=== PATIENT | male | born 1980 | race African-American/Black ===

== ENCOUNTER 2022-06-02 10:31 | Observation (INO) ==
[2022-06-02] MEDS ORDERED: KETAMINE HCL ONE (10:36)
[2022-06-02] MEDS ORDERED: XYLOCAINE 2 % (PLAIN) ONE (10:36)
[2022-06-02 11:44] VITALS: BMI 29.2
[2022-06-02 11:57] LABS: BASOPHILS % (AUTO) 0.4 % (0.2-1.0); EOSINOPHILS # (AUTO) 0.2 x10^3/uL (0.0-0.2); EOSINOPHILS % (AUTO) 2.2 % (0.9-2.9); HEMATOCRIT 37.5 % (42.0-54.0); HEMOGLOBIN 12.7 g/dL (13.5-18.0); LYMPHOCYTES % (AUTO) 17.3 % (21.0-51.0); MEAN CORPUSCULAR HEMOGLOBIN 28.2 pg (27.0-34.0); MEAN CORPUSCULAR HGB CONC 33.8 g/dL (33.0-35.0); MEAN CORPUSCULAR VOLUME 83.2 fL (80.0-100.0); MEAN PLATELET VOLUME 7.6 fL (7.4-11.0); MONOCYTES # (AUTO) 1.1 x10^3/uL (0.3-0.8); MONOCYTES % (AUTO) 9.5 % (0.0-13.0); NEUTROPHILS % (AUTO) 70.6 % (42.0-75.0); RED CELL DISTRIBUTION WIDTH 14.3 % (11.6-16.5); WHITE BLOOD COUNT 11.4 X10^3/uL (3.6-10.0)
[2022-06-02 12:06] LABS: INR 1.24 (0.8-1.3)
[2022-06-02] MEDS: PEPCID 20 MG VIAL 20 MG in NS 50 ML IV 50 ML IV SCH ×2 (12:35→20:22)
[2022-06-02] MEDS: PROTONIX INJ 40 MG VIAL IVP SCH ×2 (12:35→20:17)
[2022-06-02] MEDS: NS 1,000 ML IV 1,000 ML IV SCH (12:36)
[2022-06-02 12:59] LABS: ALANINE AMINOTRANSFERASE 42 Units/L (12-78); ALBUMIN 4.2 g/dL (3.4-5.0); ALKALINE PHOSPHATASE 210 Units/L (46-116); AMYLASE 15 Units/L (25-115); ASPARTATE AMINO TRANSFERASE 36 Units/L (15-37); BLOOD UREA NITROGEN 49 mg/dL (7-18); CALCIUM 8.9 mg/dL (8.5-10.1); CARBON DIOXIDE 26.1 mmol/L (21-32); CHLORIDE 87 mmol/L (98-107); COR NA(FOR HYPERGLY) 131 mmol/L (136-145); CREATINE KINASE 191 Units/L (39-308); LIPASE 296 Units/L (73-393); SODIUM 129 mmol/L (136-145); TOTAL PROTEIN 9.4 g/dL (6.4-8.2); eGFR NON BLACK RACES 4 (>60)
[2022-06-02] MEDS ORDERED: ZOFRAN TAB 4 MG PO PRN (16:22)
--- NOTE | 2022-06-02 16:51 | RAD ---
HISTORYNAUSEA AND VOMITNGSTUDYACUTE ABDOMEN SERIESCOMPARISONNone availableTECHNIQUEAP supine and upright abdominal radiographs with chest radiography, 7 images.FINDINGSGas and stool in non distended colon.Gas in scattered loops of non-distended small bowel; particularly in the left abdomen.No gross free air.No abnormal calcifications.No acute osseous abnormality.Lungs are clear of focal airspace disease.No cardiomegaly.No pneumothorax.No pleural effusion.Percutaneous peritoneal dialysis catheter in place.IMPRESSIONGas in scattered loops of non-distended small bowel; particularly in the left abdomen. No air-fluid levels visualized in bowel on the upright projections. Findings could represent a nonspecific enteritis, ileus or early mechanical obstruction.Electronically signed by: Nik Nickerson (Jun 02, 2022 16:49:19)
[2022-06-02] MEDS ORDERED: NS 50 ML IV 50 ML IV ONE (20:18)
[2022-06-02] MEDS: REQUIP PO SCH (20:19)
[2022-06-02] MEDS ORDERED: PEPCID 20 MG VIAL ONE (20:20)
[2022-06-02 20:43] LABS: BILIRUBIN,URINE 2+ (NEGATIVE); BLOOD/HEMOGLOBIN,URINE 2+ (NEGATIVE); GLUCOSE, URINE 2+ (NEGATIVE); KETONES,URINE 1+ (NEGATIVE); LEUKOCYTE ESTERASE ,URINE 1+ (NEGATIVE); NITRITES,URINE NEGATIVE (NEGATIVE); PROTEIN,URINE 2+ (NEGATIVE); UROBILINOGEN,URINE NORMAL (NORMAL)
[2022-06-02 20:46] LABS: APPEARANCE,URINE CLEAR (CLEAR); COLOR,URINE YELLOW (YELLOW)
[2022-06-02 20:47] LABS: BACTERIA,URINE TRACE /HPF (NEGATIVE); SQUAMOUS EPITHELIAL CELL,UR RARE /HPF (NEGATIVE)
[2022-06-02] MEDS: MAGNESIUM SULFATE 1 GRAM/100 mL PREMIX 1 G/100 ML BAG IV PRN (23:18)
[2022-06-03] MEDS: NS 1,000 ML IV 1,000 ML IV SCH ×3 (00:24→13:12)
[2022-06-03] MEDS: MAGNESIUM SULFATE 1 GRAM/100 mL PREMIX 1 G/100 ML BAG IV PRN (00:55)
[2022-06-03 05:27] LABS: BASOPHILS % (AUTO) 0.3 % (0.2-1.0); EOSINOPHILS # (AUTO) 0.3 x10^3/uL (0.0-0.2); EOSINOPHILS % (AUTO) 3.7 % (0.9-2.9); HEMATOCRIT 34.2 % (42.0-54.0); HEMOGLOBIN 11.7 g/dL (13.5-18.0); LYMPHOCYTES # (AUTO) 2.3 X10^3/uL (1.3-2.9); LYMPHOCYTES % (AUTO) 24.9 % (21.0-51.0); MEAN CORPUSCULAR HEMOGLOBIN 28.3 pg (27.0-34.0); MEAN CORPUSCULAR HGB CONC 34.2 g/dL (33.0-35.0); MEAN CORPUSCULAR VOLUME 82.8 fL (80.0-100.0); MEAN PLATELET VOLUME 7.6 fL (7.4-11.0); MONOCYTES % (AUTO) 11.1 % (0.0-13.0); NEUTROPHILS # (AUTO) 5.5 x10^3/uL (2.2-4.8); RED BLOOD COUNT 4.12 X10^6/uL (4.7-6.0); RED CELL DISTRIBUTION WIDTH 14.3 % (11.6-16.5); WHITE BLOOD COUNT 9.2 X10^3/uL (3.6-10.0)
[2022-06-03 05:42] LABS: ALANINE AMINOTRANSFERASE 42 Units/L (12-78); ALBUMIN 3.8 g/dL (3.4-5.0); ALKALINE PHOSPHATASE 187 Units/L (46-116); ASPARTATE AMINO TRANSFERASE 29 Units/L (15-37); BLOOD UREA NITROGEN 47 mg/dL (7-18); CALCIUM 8.4 mg/dL (8.5-10.1); CARBON DIOXIDE 27.2 mmol/L (21-32); CHLORIDE 90 mmol/L (98-107); COR NA(FOR HYPERGLY) 133 mmol/L (136-145); CREATININE 14.89 mg/dL (0.70-1.30); MAGNESIUM 2.4 mg/dL (1.7-2.9); SODIUM 131 mmol/L (136-145); TOTAL PROTEIN 8.5 g/dL (6.4-8.2); eGFR NON BLACK RACES 4 (>60)
[2022-06-03] MEDS: PEPCID 20 MG VIAL 20 MG in NS 50 ML IV 50 ML IV SCH (09:05)
[2022-06-03] MEDS: REQUIP PO SCH ×2 (09:05→20:52)
[2022-06-03] MEDS: PROTONIX INJ 40 MG VIAL IVP SCH ×2 (09:07→20:49)
[2022-06-03] MEDS ORDERED: MICRO K EXTEN CAP 10 MEQ PO ONE (10:00)
--- NOTE | 2022-06-03 11:01 | DR.H&P ---
H&P - History & Physical for Day of: H&P Date: 06/02/22 - Chief Complaint Chief Complaint: CHEST PAIN AND RECTAL BLEEDING - History of Present Illness History of Present Illness: PRESENTED TO THE OFFICE TODAY WITH COMPLAINTS OF CHEST PAIN. HE DESCRIBES PAIN PRESSURE, HEAVINESS, AND TIGHTNESS. PAIN RADIATES TO THE LEFT ARM AND SOMETIMES TO THE LEFT SIDE NECK. HE ADMITS TO LEFT ARM NUMBNESS AT TIMES. ADDITIONALLY, HE COMPLAINS OF DIFFUSE ABDOMINAL PAIN, NAUSEA, VOMITING, AND RECAL BLEEDING. SYMPTOMS STARTED APPROXIMATELY TWO WEEKS AGO. HE WAS SEEN AT [facility] EMERGENCY ROOM. APPARENTLY, AN EKG WAS DONE, BUT WAS REPORTEDLY NORMAL. HE HAS A PMH OF END STAGE RENAL DISEASE ON PERITONEAL DIALYSIS, HTN, GERD, HYPERLIPIDEMIA, INSOMNIA, LOW BACK PAIN, RIGHT KNEE OSTEOARTHRITIS, AND CHOLECYSTECTOMY. DECISION WAS MADE TO ADMIT PATIENT TO THE HOSPITAL FOR FURTHER EVALUATION AND TREATMENT OF CHEST PAIN AND RECTAL BLEEDING. ON ARRIVAL TO THE HOSPITAL, VITALS WERE: 98.5-238-11-100%-115/79. LABS WERE OBTAINED. WBC 11.4, RBC 4.50, HGB 12.7, HCT 37.5, PT 15.2, INR 1.24, PTT 43.0, D-DIMER 0.97, SODIUM 129, POTASSIUM 3.3, CHLORIDE 87, BUN 49, CREATININE 15.70, GLUCOSE 178, CALCIUM 8.9, AST 36, ALT 42, ALK PHOS 210, CREATINE KINASE 191, TROPONIN 38.7, TOTAL PROTEIN 9.4, ALBUMIN 4.2, GLOBULIN 5.2, AMYLASE 15, LIPASE 296. URINALYSIS REVEALED: WBC 5-10, RBC 5- 10, LEUKOCYTES 1+, BACTERIA TRACE, NITRITE NEGATIVE. COVID-19 NEGATIVE. ABDOMINAL SERIES OBTAINED AND REVEALED: Gas in scattered loops of non-distended small bowel; particularly in the left abdomen. No air-fluid levels visualized in bowel on the upright projections. Findings could represent a nonspecific enteritis, ileus or early mechanical obstruction. EKG REVEALED: SINUS TACHYCARDIA WITH HR 115. HE WAS STARTED ON NORMAL SALINE AT 80 ML/HR, PEPCID 20MG IV DAILY, PROTONIX 40MG IV BID, ROCEPHIN 1G IV DAILY, ZOFRAN 4MG PO Q6H PRN, THE MAGNESIUM PROTOCOL, AND HIS HOME MEDICATIONS WERE RESUMED. WE WILL CONSULT , INSURANCE APPRAISER, DUE TO CHEST PAIN AND , GENERAL SURGEON, FOR POSSIBLE ENDOSCOPY DUE TO RECTAL BLEEDING. OTHERWISE, WE WILL FOLLOW-UP WITH SERIAL CARDIAC ENZYMES AND EKGS AND CONTINUE TO MONITOR. TIME SPENT ON CLINICAL ASSESSMENT, REVIWING LABS AND IMAGING, DECISION MAKING, AND DOCUMENTATION GREATER THAN 75 MINUTES. - Past Medical History Past Medical History: Hypertension, Diabetes, Renal Disease - Past Surgical History Surgical History: Cholecystectomy - Family History Family Medical History: Diabetes Mellitus, Hypertension - Social History Does patient currently use any type of tobacco product: No Have you used tobacco products in the last 12 months: No Does any household member use tobacco: No Alcohol Use: None Drug Use: None - Medications Home Medications: MS Penicillin G [Penicillin G] Allergy (Verified 04/04/15 20:58) CONTINUE taking the following medications amlodipine 10 mg tablet 1 tab PO QDAY 06/02/22 [History] calcitriol 0.25 mcg capsule 0.75 mcg PO QDAY 06/02/22 [History] cinacalcet 60 mg tablet 60 mg PO QHS 06/02/22 [History] furosemide 80 mg tablet 80 mg PO BID 06/02/22 [History] metoprolol succinate 25 mg tablet,extended release 24 hr 1 tab PO QDAY 06/02/22 [History] pantoprazole 40 mg tablet,delayed release (Protonix) 40 mg PO BID 06/02/22 [History] ropinirole 0.5 mg tablet 0.5 mg PO QHS 06/02/22 [History] - Review of Systems Constitutional: Weakness Eyes: No Symptoms Reported ENT: No Symptoms Reported Respiratory: No Symptoms Reported Cardiovascular: Chest Pain, Light Headedness Gastrointestinal: Nausea, Vomiting, Abdominal Pain, Melena Genitourinary: No Symptoms Reported Musculoskeletal: No Symptoms Reported Skin: No Symptoms Reported Neurological: Weakness - Physical Exam Vital Signs: Temperature 97.8 F Pulse Rate [Bilateral Apical] 100 Pulse Rate 108 Respiratory Rate 12 Blood Pressure [Right Arm] 132/82 Blood Pressure 130/85 O2 Sat by Pulse Oximetry 100 Oriented: Normal Eyes: Normal Ear: Normal Nose: Normal Throat: Normal Respiratory: Diminished Throughout Cardiovascular: Tachycardia : Normal Auscultation: Bowel Sounds: Normal Palpation: Normal Tenderness: Diffuse Skin: Normal Musculoskeletal: Normal Psychiatric: Normal Mood Description: Calm Affect: Normal Speech Pattern: Clear - Assessment/Plan (1) Chest pain, rule out acute myocardial infarction Status: Acute Plan: ADMIT, NORMAL SALINE AT 80 ML/HR, PEPCID 20MG IV DAILY, PROTONIX 40MG IV BID, ROCEPHIN 1G IV DAILY, ZOFRAN 4MG PO Q6H PRN, THE MAGNESIUM PROTOCOL, AND HIS HOME MEDICATIONS WERE RESUMED. SERIAL CARDIAC ENZYMES AND EKGS (2) Nausea and vomiting Qualifiers: Vomiting type: unspecified Qualified Code(s): R11.2 - Nausea with vomiting, unspecified Status: Acute (3) Melena Status: Acute (4) Urinary tract infection Qualifiers: Urinary tract infection type: site unspecified Hematuria presence: without hematuria Qualified Code(s): N39.0 - Urinary tract infection, site not specified Status: Acute (5) End-stage renal disease on peritoneal dialysis Status: Chronic (6) Hypertension Qualifiers: Hypertension type: primary hypertension Qualified Code(s): I10 - Essential (primary) hypertension Status: Chronic (7) GERD (gastroesophageal reflux disease) Qualifiers: Esophagitis presence: esophagitis presence not specified Qualified Code(s): K21.9 - Gastro-esophageal reflux disease without esophagitis Status: Chronic - Review H&P Reviewed: Yes Patient was examined?: Yes - Allergies Allergies/Adverse Reactions: Allergies Allergy/AdvReac Type Severity Reaction Status Date / Time MS Penicillin G Allergy Verified 04/04/15 20:58 [Penicillin G]
[2022-06-03] MEDS: ROCEPHIN VIAL 1 GRAM 1 G in NS 100 ML IV 100 ML IV SCH (11:39)
--- NOTE | 2022-06-03 12:31 | PCM.PROG ---
Progress Note - Progress Note for Day of Date of Exam: 06/03/22 - Subjective Subjective: IS CURRENTLY OBSERVATION STATUS FOR TREATMENT OF CHEST PAIN RULE OUT ACUTE CO, ABDOMINAL PAIN, NAUSEA AND VOMITING, AND MELENA. TODAY, HE IS ALERT AND ORIENTED, LYING IN BED ON MORNING ROUNDS. HE CONTINUES WITH COMPLAINTS OF CHEST PRESSURE AND ABDOMINAL PAIN. HE REPORTS SLIGHT IMPROVEEMENT IN CHEST PRESSURE TODAY. HE CONTINUES WITH COMPLAINTS OF NAUSEA AND DIFFUSE ABDOMINAL TENDERNESS THIS MORNING. ON EXAMINATION, HEART IS REGULAR IN RATE AND RHYTHM. BILATERAL LUNGS ARE NOTED WITH DIMINISHED LUNG SOUNDS THROUGHOUT. ABDOMEN IS ROUND, SOFT, AND NOTED WITH DIFFUSE TENDERNESS. TRACE LOWER EXTREMITY EDEMA NOTED. HIS VITALS THIS MORNING ARE: 97.6-720-78-100%-132/82. LABS WERE OBTAINED. WBC 9.2, RBC 4.12, HGB 11.7, HCT 34.2, SODIUM 131, POTASSIUM 2.9, CHLORIDE 90, BUN 47, CREATININE 14.89, GLUCOSE 176, CALCIUM 8.4, ALK PHOS 187, TOTAL PROTEIN 8.5, ALBUMIN 3.8. CARDIAC ENZYMES HAVE BEEN WITHIN NORMAL LIMITS. NO CHANGES NOTED TO EKGS. TODAY, WE WILL ADMINISTER POTASSIUM CHLORIDE 10MEQ PO X 1 DOSE. , GENERAL SURGEON, AND DR. RODRIGES, TIRE BAGGER, ARE SCHEDULED TO SEE PATIENT TODAY. WE WILL CONTINUE WITH CURRENT PLAN OF CARE. OTHERWISE, WE WILL FOLLOW-UP WITH AM LABS AND CONTINUE TO MONITOR. TIME SPENT ON CLINICAL ASSESSMENT, REVIWING LABS AND IMAGING, DECISION MAKING, AND DOCUMENTATION GREATER THAN 45 MINUTES. - Past Medical Family Social History Past Med/Fam/Surg Hx: No changes since H&P Allergies: Allergies MS Penicillin G [Penicillin G] Allergy (Verified 04/04/15 20:58) - Review of Systems ROS: No change since H&P - Vital Signs and I&O's Vital Signs: Temperature 98.2 F Pulse Rate [Bilateral Apical] 100 Pulse Rate 108 Respiratory Rate 18 Blood Pressure [Right Arm] 132/82 Blood Pressure 123/69 O2 Sat by Pulse Oximetry 100 Intake and Output: Intake & Output 06/01/22 06/02/22 06/03/22 06/04/22 11:59 11:59 11:59 11:59 Intake Total 1564 / 1564 Output Total Balance 1539 / 1539 - Physical Exam Oriented: Normal Eyes: Normal Ear: Normal Nose: Normal Throat: Normal Respiratory: Generalized, Diminished Cardiovascular: Tachycardia : Normal Auscultation: Bowel Sounds: Normal Palpation: Normal Tenderness: Diffuse Skin: Normal Musculoskeletal: Normal Psychiatric: Normal Mood Description: Calm Affect: Normal Speech Pattern: Clear - Laboratory and Diagnostics Result Diagrams: 06/03/22 04:55 06/03/22 04:55 Labs: Laboratory WBC 9.2 X10^3/uL (3.6-10.0) 06/03/22 04:55 RBC 4.12 X10^6/uL (4.7-6.0) L 06/03/22 04:55 Hgb 11.7 g/dL (13.5-18.0) L 06/03/22 04:55 Hct 34.2 % (42.0-54.0) L 06/03/22 04:55 MCV 82.8 fL (80.0-100.0) 06/03/22 04:55 MCH 28.3 pg (27.0-34.0) 06/03/22 04:55 MCHC 34.2 g/dL (33.0-35.0) 06/03/22 04:55 RDW 14.3 % (11.6-16.5) 06/03/22 04:55 Plt Count 296 X10^3/uL (150.0-450.0) 06/03/22 04:55 MPV 7.6 fL (7.4-11.0) 06/03/22 04:55 Neut % (Auto) 60.0 % (42.0-75.0) 06/03/22 04:55 Lymph % (Auto) 24.9 % (21.0-51.0) 06/03/22 04:55 [place] % (Auto) 11.1 % (0.0-13.0) 06/03/22 04:55 Eos % (Auto) 3.7 % (0.9-2.9) H 06/03/22 04:55 Baso % (Auto) 0.3 % (0.2-1.0) 06/03/22 04:55 Neut # (Auto) 5.5 x10^3/uL (2.2-4.8) H 06/03/22 04:55 Lymph # (Auto) 2.3 X10^3/uL (1.3-2.9) 06/03/22 04:55 [place] # (Auto) 1.0 x10^3/uL (0.3-0.8) H 06/03/22 04:55 Eos # (Auto) 0.3 x10^3/uL (0.0-0.2) H 06/03/22 04:55 Baso # (Auto) 0.0 X10^3/uL (0.0-0.1) 06/03/22 04:55 Absolute Nucleated RBC 0.1 /100WBC 06/03/22 04:55 PT 15.2 SECONDS (11.8-14.3) 06/02/22 11:40 INR Target Range - 06/02/22 11:40 INR 1.24 (0.8-1.3) 06/02/22 11:40 APTT 43.0 SECONDS (22.9-36.5) H 06/02/22 11:40 PTT Comment - 06/02/22 11:40 D-Dimer 0.97 ug/ml (0.0-0.57) H 06/02/22 11:40 Sodium 131 mmol/L (136-145) L 06/03/22 04:55 Corrected Sodium 133 mmol/L (136-145) L 06/03/22 04:55 Potassium 2.9 mmol/L (3.5-5.1) L* 06/03/22 04:55 Chloride 90 mmol/L (98-107) L 06/03/22 04:55 Carbon Dioxide 27.2 mmol/L (21-32) 06/03/22 04:55 BUN 47 mg/dL (7-18) H 06/03/22 04:55 Creatinine 14.89 mg/dL (0.70-1.30) H 06/03/22 04:55 Est GFR (MDRD) Af Amer 5 (>60) L 06/03/22 04:55 Est GFR (MDRD) Non-Af 4 (>60) L 06/03/22 04:55 Glucose 176 mg/dL (65-99) H 06/03/22 04:55 Calcium 8.4 mg/dL (8.5-10.1) L 06/03/22 04:55 Corrected Calcium TNP 06/03/22 04:55 Magnesium 2.4 mg/dL (1.7-2.9) 06/03/22 04:55 Total Bilirubin 0.50 mg/dL (0.2-1.0) 06/03/22 04:55 AST 29 Units/L (15-37) 06/03/22 04:55 ALT 42 Units/L (12-78) 06/03/22 04:55 Alkaline Phosphatase 187 Units/L (46-116) H 06/03/22 04:55 Creatine Kinase 172 Units/L (39-308) 06/02/22 22:35 Troponin I High Sens 46.7 ng/L (4.0-60.0) 06/02/22 22:35 B-Natriuretic Peptide 64.8 pg/mL (0-79) 06/02/22 11:40 Total Protein 8.5 g/dL (6.4-8.2) H 06/03/22 04:55 Albumin 3.8 g/dL (3.4-5.0) 06/03/22 04:55 Globulin 4.7 g/dL (2.5-4.5) H 06/03/22 04:55 Albumin/Globulin Ratio 0.8 Ratio (1.1-2.1) L 06/03/22 04:55 Amylase 15 Units/L (25-115) L 06/02/22 11:40 Lipase 296 Units/L (73-393) 06/02/22 11:40 Specimen Type Clean catch urine 06/02/22 20:20 Urine Color Yellow (YELLOW) 06/02/22 20:20 Urine Appearance Clear (CLEAR) 06/02/22 20:20 Urine pH 5.0 (5.0 - 8.0) 06/02/22 20:20 Ur Specific [place] 1.020 (1.000-1.030) 06/02/22 20:20 Urine Protein 2+ (NEGATIVE) 06/02/22 20:20 Urine Glucose (UA) 2+ (NEGATIVE) 06/02/22 20:20 Urine Ketones 1+ (NEGATIVE) 06/02/22 20:20 Urine Blood 2+ (NEGATIVE) 06/02/22 20:20 Urine Nitrite Negative (NEGATIVE) 06/02/22 20:20 Urine Bilirubin 2+ (NEGATIVE) 06/02/22 20:20 Urine Urobilinogen Normal (NORMAL) 06/02/22 20:20 Ur Leukocyte Esterase 1+ (NEGATIVE) 06/02/22 20:20 Urine RBC 5-10 /HPF (0-3) A 06/02/22 20:20 Urine WBC 5-10 /HPF (0-5) A 06/02/22 20:20 Ur Squamous Epith Cells Rare /HPF (NEGATIVE) 06/02/22 20:20 Urine Bacteria Trace /HPF (NEGATIVE) 06/02/22 20:20 Ur Culture Indicated? No/not indicated 06/02/22 20:20 SARS-CoV-2 (PCR) Negative (NEGATIVE) 06/02/22 20:00 - Plan (1) Chest pain, rule out acute myocardial infarction Status: Acute Plan: NORMAL SALINE AT 80 ML/HR, PEPCID 20MG IV DAILY, PROTONIX 40MG IV BID, ROCEPHIN 1G IV DAILY, ZOFRAN 4MG PO Q6H PRN, THE MAGNESIUM PROTOCOL, AND HIS HOME MEDICATIONS WERE RESUMED. SERIAL CARDIAC ENZYMES AND EKGS (2) Nausea and vomiting Status: Acute Qualifiers: Vomiting type: unspecified Qualified Code(s): R11.2 - Nausea with vomiting, unspecified (3) Melena Status: Acute (4) Urinary tract infection Status: Acute Qualifiers: Urinary tract infection type: site unspecified Hematuria presence: without hematuria Qualified Code(s): N39.0 - Urinary tract infection, site not specified (5) End-stage renal disease on peritoneal dialysis Status: Chronic (6) Hypertension Status: Chronic Qualifiers: Hypertension type: primary hypertension Qualified Code(s): I10 - Essential (primary) hypertension (7) GERD (gastroesophageal reflux disease) Status: Chronic Qualifiers: Esophagitis presence: esophagitis presence not specified Qualified Code(s): K21.9 - Gastro-esophageal reflux disease without esophagitis
[2022-06-03] MEDS ORDERED: TOPROL XL PO SCH (13:00)
[2022-06-03] MEDS ORDERED: DIPRIVAN VIAL 20 ML ONE (14:42)
[2022-06-03] MEDS ORDERED: ZOFRAN INJ 4 MG VIAL ONE (14:44)
[2022-06-03] MEDS: LASIX PO SCH ×2 (15:22→20:52)
[2022-06-03] MEDS: NORVASC TAB 10 MG PO SCH (15:22)
[2022-06-03] MEDS: ROCALTROL PO SCH (15:22)
[2022-06-03] MEDS ORDERED: ULTRAM PO PRN (19:45)
[2022-06-03] MEDS: SENSIPAR PO SCH (20:51)
[2022-06-03] MEDS: CATAPRES TAB 0.2 MG PO SCH (20:52)
[2022-06-04] MEDS: NS 1,000 ML IV 1,000 ML IV SCH ×2 (01:42→15:27)
[2022-06-04] MEDS ORDERED: K-RIDER 10 MEQ/NS 100 ML 10 MEQ/100 ML BAG IV PRN (01:42)
[2022-06-04] MEDS ORDERED: MAGNESIUM SULFATE 1 GRAM/100 mL PREMIX 1 G/100 ML BAG IV PRN (01:42)
[2022-06-04] MEDS ORDERED: K-DUR TAB 20 MEQ PO PRN (01:42)
[2022-06-04] MEDS ORDERED: MICRO K EXTEN CAP 10 MEQ PO PRN (01:42)
[2022-06-04] MEDS ORDERED: KLOR-CON PO PRN (01:42)
[2022-06-04] MEDS ORDERED: POTASSIUM CHL 60 MEQ/NS 0.45% 500 ML IV PRN (01:42)
[2022-06-04] MEDS ORDERED: POTASSIUM CHL 40 MEQ/NS 0.45% 500 ML IV PRN (01:42)
[2022-06-04] MEDS ORDERED: POTASSIUM CHLORIDE LIQ 20 MEQ UDC PO PRN (01:42)
[2022-06-04 05:45] LABS: ALANINE AMINOTRANSFERASE 40 Units/L (12-78); ALBUMIN 3.4 g/dL (3.4-5.0); ALKALINE PHOSPHATASE 163 Units/L (46-116); ASPARTATE AMINO TRANSFERASE 26 Units/L (15-37); BLOOD UREA NITROGEN 50 mg/dL (7-18); CALCIUM 7.8 mg/dL (8.5-10.1); CARBON DIOXIDE 25.7 mmol/L (21-32); CHLORIDE 92 mmol/L (98-107); COR NA(FOR HYPERGLY) 132 mmol/L (136-145); CREATININE 15.65 mg/dL (0.70-1.30); MAGNESIUM 2.1 mg/dL (1.7-2.9); SODIUM 131 mmol/L (136-145); TOTAL PROTEIN 7.5 g/dL (6.4-8.2); eGFR NON BLACK RACES 4 (>60)
[2022-06-04 05:47] LABS: BASOPHILS % (AUTO) 0.3 % (0.2-1.0); EOSINOPHILS # (AUTO) 0.3 x10^3/uL (0.0-0.2); EOSINOPHILS % (AUTO) 3.3 % (0.9-2.9); HEMATOCRIT 30.8 % (42.0-54.0); HEMOGLOBIN 10.4 g/dL (13.5-18.0); LYMPHOCYTES # (AUTO) 2.1 X10^3/uL (1.3-2.9); LYMPHOCYTES % (AUTO) 21.6 % (21.0-51.0); MEAN CORPUSCULAR HEMOGLOBIN 28.2 pg (27.0-34.0); MEAN CORPUSCULAR HGB CONC 33.8 g/dL (33.0-35.0); MEAN CORPUSCULAR VOLUME 83.4 fL (80.0-100.0); MEAN PLATELET VOLUME 8.2 fL (7.4-11.0); MONOCYTES # (AUTO) 0.9 x10^3/uL (0.3-0.8); MONOCYTES % (AUTO) 9.6 % (0.0-13.0); NEUTROPHILS # (AUTO) 6.4 x10^3/uL (2.2-4.8); NEUTROPHILS % (AUTO) 65.2 % (42.0-75.0); RED CELL DISTRIBUTION WIDTH 14.4 % (11.6-16.5); WHITE BLOOD COUNT 9.7 X10^3/uL (3.6-10.0)
--- NOTE | 2022-06-04 08:02 | DR.PROGNOT ---
Hospital Progress Notes - Progress Note for Day of: Progress Note Date: 06/04/22 - Chief Complaint Chief Complaint: EGD showed mild gastritis , no obstruction , no bleeding , no ulcers . still having rectal bleeding . - Past Medical Family Social History Past Med/Fam/Surg Hx: No changes since H&P Allergies: Allergies penicillin G Allergy (Verified 06/04/22 07:59) - Review Of Systems ROS: No change since H&P - Vital Signs Vital Signs: Temperature 97.1 F Pulse Rate [Bilateral Apical] 100 Pulse Rate 82 Respiratory Rate 15 Blood Pressure [Right Arm] 132/82 Blood Pressure 96/53 O2 Sat by Pulse Oximetry 100 - Physical Exam Oriented: Normal Eyes: Normal Ear: Normal Nose: Normal Throat: Normal Respiratory: Generalized, Diminished Cardiovascular: Tachycardia : Normal GI:Auscultation: Normal GI:Palpation: Normal GI: Tenderness: Diffuse Skin: Normal Musculoskeletal: Normal Psychiatric: Normal Mood Description: Calm Affect: Normal Speech Pattern: Clear, Appropriate - Laboratory and Diagnostics Result Diagrams: 06/04/22 04:38 06/04/22 04:38 Labs: 06/03/22 16:20 Urine,Clean Catch Urine Culture - Preliminary Laboratory WBC 9.7 X10^3/uL (3.6-10.0) 06/04/22 04:38 RBC 3.70 X10^6/uL (4.7-6.0) L 06/04/22 04:38 Hgb 10.4 g/dL (13.5-18.0) L 06/04/22 04:38 Hct 30.8 % (42.0-54.0) L 06/04/22 04:38 MCV 83.4 fL (80.0-100.0) 06/04/22 04:38 MCH 28.2 pg (27.0-34.0) 06/04/22 04:38 MCHC 33.8 g/dL (33.0-35.0) 06/04/22 04:38 RDW 14.4 % (11.6-16.5) 06/04/22 04:38 Plt Count 265 X10^3/uL (150.0-450.0) 06/04/22 04:38 MPV 8.2 fL (7.4-11.0) 06/04/22 04:38 Neut % (Auto) 65.2 % (42.0-75.0) 06/04/22 04:38 Lymph % (Auto) 21.6 % (21.0-51.0) 06/04/22 04:38 [place] % (Auto) 9.6 % (0.0-13.0) 06/04/22 04:38 Eos % (Auto) 3.3 % (0.9-2.9) H 06/04/22 04:38 Baso % (Auto) 0.3 % (0.2-1.0) 06/04/22 04:38 Neut # (Auto) 6.4 x10^3/uL (2.2-4.8) H 06/04/22 04:38 Lymph # (Auto) 2.1 X10^3/uL (1.3-2.9) 06/04/22 04:38 [place] # (Auto) 0.9 x10^3/uL (0.3-0.8) H 06/04/22 04:38 Eos # (Auto) 0.3 x10^3/uL (0.0-0.2) H 06/04/22 04:38 Baso # (Auto) 0.0 X10^3/uL (0.0-0.1) 06/04/22 04:38 Absolute Nucleated RBC 0.1 /100WBC 06/04/22 04:38 PT 15.2 SECONDS (11.8-14.3) 06/02/22 11:40 INR Target Range - 06/02/22 11:40 INR 1.24 (0.8-1.3) 06/02/22 11:40 APTT 43.0 SECONDS (22.9-36.5) H 06/02/22 11:40 PTT Comment - 06/02/22 11:40 D-Dimer 0.97 ug/ml (0.0-0.57) H 06/02/22 11:40 Sodium 131 mmol/L (136-145) L 06/04/22 04:38 Corrected Sodium 132 mmol/L (136-145) L 06/04/22 04:38 Potassium 3.8 mmol/L (3.5-5.1) 06/04/22 04:38 Chloride 92 mmol/L (98-107) L 06/04/22 04:38 Carbon Dioxide 25.7 mmol/L (21-32) 06/04/22 04:38 BUN 50 mg/dL (7-18) H 06/04/22 04:38 Creatinine 15.65 mg/dL (0.70-1.30) H 06/04/22 04:38 Est GFR (MDRD) Af Amer 4 (>60) L 06/04/22 04:38 Est GFR (MDRD) Non-Af 4 (>60) L 06/04/22 04:38 Glucose 129 mg/dL (65-99) H 06/04/22 04:38 Calcium 7.8 mg/dL (8.5-10.1) L 06/04/22 04:38 Corrected Calcium TNP 06/04/22 04:38 Magnesium 2.1 mg/dL (1.7-2.9) 06/04/22 04:38 Total Bilirubin 0.40 mg/dL (0.2-1.0) 06/04/22 04:38 AST 26 Units/L (15-37) 06/04/22 04:38 ALT 40 Units/L (12-78) 06/04/22 04:38 Alkaline Phosphatase 163 Units/L (46-116) H 06/04/22 04:38 Creatine Kinase 172 Units/L (39-308) 06/02/22 22:35 Troponin I High Sens 46.7 ng/L (4.0-60.0) 06/02/22 22:35 B-Natriuretic Peptide 64.8 pg/mL (0-79) 06/02/22 11:40 Total Protein 7.5 g/dL (6.4-8.2) 06/04/22 04:38 Albumin 3.4 g/dL (3.4-5.0) 06/04/22 04:38 Globulin 4.1 g/dL (2.5-4.5) 06/04/22 04:38 Albumin/Globulin Ratio 0.8 Ratio (1.1-2.1) L 06/04/22 04:38 Amylase 15 Units/L (25-115) L 06/02/22 11:40 Lipase 296 Units/L (73-393) 06/02/22 11:40 Specimen Type Clean catch urine 06/02/22 20:20 Urine Color Yellow (YELLOW) 06/02/22 20:20 Urine Appearance Clear (CLEAR) 06/02/22 20:20 Urine pH 5.0 (5.0 - 8.0) 06/02/22 20:20 Ur Specific [place] 1.020 (1.000-1.030) 06/02/22 20:20 Urine Protein 2+ (NEGATIVE) 06/02/22 20:20 Urine Glucose (UA) 2+ (NEGATIVE) 06/02/22 20:20 Urine Ketones 1+ (NEGATIVE) 06/02/22 20:20 Urine Blood 2+ (NEGATIVE) 06/02/22 20:20 Urine Nitrite Negative (NEGATIVE) 06/02/22 20:20 Urine Bilirubin 2+ (NEGATIVE) 06/02/22 20:20 Urine Urobilinogen Normal (NORMAL) 06/02/22 20:20 Ur Leukocyte Esterase 1+ (NEGATIVE) 06/02/22 20:20 Urine RBC 5-10 /HPF (0-3) A 06/02/22 20:20 Urine WBC 5-10 /HPF (0-5) A 06/02/22 20:20 Ur Squamous Epith Cells Rare /HPF (NEGATIVE) 06/02/22 20:20 Urine Bacteria Trace /HPF (NEGATIVE) 06/02/22 20:20 Ur Culture Indicated? No/not indicated 06/02/22 20:20 Stool Description Brown soft 06/03/22 16:20 Stl Occult Blood (IFOB) Negative (NEGATIVE) 06/03/22 16:20 SARS-CoV-2 (PCR) Negative (NEGATIVE) 06/02/22 20:00 Tissue Pathology To follow 06/03/22 14:47 - Assessment and Plan 1: rectal bleeding , nausea , vomiting , abdominal pain . for colonoscopy in am . - Problem Patient Problems: Patient Problems Hypertension (Chronic) I10 Chest pain, rule out acute myocardial infarction (Acute) R07.9 Nausea and vomiting (Acute) R11.2 Melena (Acute) K92.1 End-stage renal disease on peritoneal dialysis (Chronic) N18.6, Z99.2 GERD (gastroesophageal reflux disease) (Chronic) K21.9 Urinary tract infection (Acute) N39.0
[2022-06-04] MEDS ORDERED: LOPRESSOR TAB 50 MG PO SCH (09:00)
[2022-06-04] MEDS: ROCEPHIN VIAL 1 GRAM 1 G in NS 100 ML IV 100 ML IV SCH (09:45)
[2022-06-04] MEDS: PROTONIX INJ 40 MG VIAL IVP SCH ×2 (09:46→20:07)
[2022-06-04] MEDS: ROCALTROL PO SCH (09:46)
[2022-06-04] MEDS: PEPCID 20 MG VIAL 20 MG in NS 50 ML IV 50 ML IV SCH (09:46)
[2022-06-04] MEDS: REQUIP PO SCH ×2 (09:46→20:08)
[2022-06-04] MEDS: LASIX PO SCH ×2 (09:47→20:07)
[2022-06-04] MEDS: CATAPRES TAB 0.2 MG PO SCH ×2 (09:54→20:07)
[2022-06-04] MEDS: NORVASC TAB 10 MG PO SCH (09:54)
[2022-06-04] MEDS ORDERED: GOLYTELY or GAVILYTE or Equivalent PO NR (10:00)
--- NOTE | 2022-06-04 11:13 | PCM.PROG ---
Progress Note - Progress Note for Day of Date of Exam: 06/04/22 - Subjective Subjective: IS CURRENTLY OBSERVATION STATUS FOR TREATMENT OF CHEST PAIN RULE OUT ACUTE OR, ABDOMINAL PAIN, NAUSEA AND VOMITING, AND MELENA. TODAY, HE IS ALERT AND ORIENTED, LYING IN BED ON MORNING ROUNDS. HE CONTINUES WITH COMPLAINTS RECTAL BLEEDING AND MILD, DIFFUSE ABDOMINAL PAIN AT TIMES. HE DOES ADMIT TO SOME IMPROVEMENT SINCE ADMISSION. HE REPORTS THAT CHEST PAIN AND PRESSURE HAS RESOLVED. HE HAD AN EGD YESTERDAY WHICH REVEALED GASTRITIS. ON EXAMINATION, HEART IS REGULAR IN RATE AND RHYTHM. BILATERAL LUNGS ARE NOTED WITH DIMINISHED LUNG SOUNDS THROUGHOUT. ABDOMEN IS ROUND, SOFT, AND NOTED WITH DIFFUSE TENDERNESS. TRACE LOWER EXTREMITY EDEMA NOTED. HIS VITALS THIS MORNING ARE: 98.1-85-16-100%-92/53. LABS WERE OBTAINED. WBC 9.7, RBC 3.70, HGB 10.4, HCT 30.8, SODIUM 131, POTASSIUM 3.8, CHLORIDE 92, BUN 50, CREATININE 15.65, GLUCOSE 129, CALCIUM 7.8, AST 26, ALT 40, ALK PHOS 163, TOTAL PROTEIN 7.5, ALBUMIN 3.4. CONSULTED WITH HIM YESTERDAY, BUT DID NOT FEEL THAT CARDIAC WORKUP WAS INDICATED. , GENERAL SURGEON, PLANS FOR A COLONOSCOPY TOMORROW. WE ARE IN AGREEMENT WITH PLANS. WE WILL CONTINUE WITH CURRENT PLAN OF CARE TODAY. OTHERWISE, WE WILL FOLLOW-UP WITH AM LABS AND CONTINUE TO MONITOR. TIME SPENT ON CLINICAL ASSESSMENT, REVIWING LABS AND IMAGING, DECISION MAKING, AND DOCUMENTATION GREATER THAN 45 MINUTES. - Past Medical Family Social History Past Med/Fam/Surg Hx: No changes since H&P Allergies: Allergies penicillin G Allergy (Verified 06/04/22 07:59) - Review of Systems ROS: No change since H&P - Vital Signs and I&O's Vital Signs: Temperature 97.1 F Pulse Rate [Bilateral Apical] 100 Pulse Rate 85 Respiratory Rate 20 Blood Pressure [Right Arm] 132/82 Blood Pressure 92/53 O2 Sat by Pulse Oximetry 100 Intake and Output: Intake & Output 06/01/22 06/02/22 06/03/22 06/04/22 11:59 11:59 11:59 11:59 Intake Total 1564 / 1564 2200 / 2200 Output Total Balance 1539 / 1539 2200 - Physical Exam Oriented: Normal Eyes: Normal Ear: Normal Nose: Normal Throat: Normal Respiratory: Generalized, Diminished Cardiovascular: Tachycardia : Normal Auscultation: Bowel Sounds: Normal Palpation: Normal Tenderness: Diffuse Skin: Normal Musculoskeletal: Normal Psychiatric: Normal Mood Description: Calm Affect: Normal Speech Pattern: Clear, Appropriate - Laboratory and Diagnostics Result Diagrams: 06/04/22 04:38 06/04/22 04:38 Labs: 06/03/22 16:20 Urine,Clean Catch Urine Culture - Preliminary Laboratory WBC 9.7 X10^3/uL (3.6-10.0) 06/04/22 04:38 RBC 3.70 X10^6/uL (4.7-6.0) L 06/04/22 04:38 Hgb 10.4 g/dL (13.5-18.0) L 06/04/22 04:38 Hct 30.8 % (42.0-54.0) L 06/04/22 04:38 MCV 83.4 fL (80.0-100.0) 06/04/22 04:38 MCH 28.2 pg (27.0-34.0) 06/04/22 04:38 MCHC 33.8 g/dL (33.0-35.0) 06/04/22 04:38 RDW 14.4 % (11.6-16.5) 06/04/22 04:38 Plt Count 265 X10^3/uL (150.0-450.0) 06/04/22 04:38 MPV 8.2 fL (7.4-11.0) 06/04/22 04:38 Neut % (Auto) 65.2 % (42.0-75.0) 06/04/22 04:38 Lymph % (Auto) 21.6 % (21.0-51.0) 06/04/22 04:38 [place] % (Auto) 9.6 % (0.0-13.0) 06/04/22 04:38 Eos % (Auto) 3.3 % (0.9-2.9) H 06/04/22 04:38 Baso % (Auto) 0.3 % (0.2-1.0) 06/04/22 04:38 Neut # (Auto) 6.4 x10^3/uL (2.2-4.8) H 06/04/22 04:38 Lymph # (Auto) 2.1 X10^3/uL (1.3-2.9) 06/04/22 04:38 [place] # (Auto) 0.9 x10^3/uL (0.3-0.8) H 06/04/22 04:38 Eos # (Auto) 0.3 x10^3/uL (0.0-0.2) H 06/04/22 04:38 Baso # (Auto) 0.0 X10^3/uL (0.0-0.1) 06/04/22 04:38 Absolute Nucleated RBC 0.1 /100WBC 06/04/22 04:38 PT 15.2 SECONDS (11.8-14.3) 06/02/22 11:40 INR Target Range - 06/02/22 11:40 INR 1.24 (0.8-1.3) 06/02/22 11:40 APTT 43.0 SECONDS (22.9-36.5) H 06/02/22 11:40 PTT Comment - 06/02/22 11:40 D-Dimer 0.97 ug/ml (0.0-0.57) H 06/02/22 11:40 Sodium 131 mmol/L (136-145) L 06/04/22 04:38 Corrected Sodium 132 mmol/L (136-145) L 06/04/22 04:38 Potassium 3.8 mmol/L (3.5-5.1) 06/04/22 04:38 Chloride 92 mmol/L (98-107) L 06/04/22 04:38 Carbon Dioxide 25.7 mmol/L (21-32) 06/04/22 04:38 BUN 50 mg/dL (7-18) H 06/04/22 04:38 Creatinine 15.65 mg/dL (0.70-1.30) H 06/04/22 04:38 Est GFR (MDRD) Af Amer 4 (>60) L 06/04/22 04:38 Est GFR (MDRD) Non-Af 4 (>60) L 06/04/22 04:38 Glucose 129 mg/dL (65-99) H 06/04/22 04:38 Calcium 7.8 mg/dL (8.5-10.1) L 06/04/22 04:38 Corrected Calcium TNP 06/04/22 04:38 Magnesium 2.1 mg/dL (1.7-2.9) 06/04/22 04:38 Total Bilirubin 0.40 mg/dL (0.2-1.0) 06/04/22 04:38 AST 26 Units/L (15-37) 06/04/22 04:38 ALT 40 Units/L (12-78) 06/04/22 04:38 Alkaline Phosphatase 163 Units/L (46-116) H 06/04/22 04:38 Creatine Kinase 172 Units/L (39-308) 06/02/22 22:35 Troponin I High Sens 46.7 ng/L (4.0-60.0) 06/02/22 22:35 B-Natriuretic Peptide 64.8 pg/mL (0-79) 06/02/22 11:40 Total Protein 7.5 g/dL (6.4-8.2) 06/04/22 04:38 Albumin 3.4 g/dL (3.4-5.0) 06/04/22 04:38 Globulin 4.1 g/dL (2.5-4.5) 06/04/22 04:38 Albumin/Globulin Ratio 0.8 Ratio (1.1-2.1) L 06/04/22 04:38 Amylase 15 Units/L (25-115) L 06/02/22 11:40 Lipase 296 Units/L (73-393) 06/02/22 11:40 Specimen Type Clean catch urine 06/02/22 20:20 Urine Color Yellow (YELLOW) 06/02/22 20:20 Urine Appearance Clear (CLEAR) 06/02/22 20:20 Urine pH 5.0 (5.0 - 8.0) 06/02/22 20:20 Ur Specific [place] 1.020 (1.000-1.030) 06/02/22 20:20 Urine Protein 2+ (NEGATIVE) 06/02/22 20:20 Urine Glucose (UA) 2+ (NEGATIVE) 06/02/22 20:20 Urine Ketones 1+ (NEGATIVE) 06/02/22 20:20 Urine Blood 2+ (NEGATIVE) 06/02/22 20:20 Urine Nitrite Negative (NEGATIVE) 06/02/22 20:20 Urine Bilirubin 2+ (NEGATIVE) 06/02/22 20:20 Urine Urobilinogen Normal (NORMAL) 06/02/22 20:20 Ur Leukocyte Esterase 1+ (NEGATIVE) 06/02/22 20:20 Urine RBC 5-10 /HPF (0-3) A 06/02/22 20:20 Urine WBC 5-10 /HPF (0-5) A 06/02/22 20:20 Ur Squamous Epith Cells Rare /HPF (NEGATIVE) 06/02/22 20:20 Urine Bacteria Trace /HPF (NEGATIVE) 06/02/22 20:20 Ur Culture Indicated? No/not indicated 06/02/22 20:20 Stool Description Brown soft 06/03/22 16:20 Stl Occult Blood (IFOB) Negative (NEGATIVE) 06/03/22 16:20 SARS-CoV-2 (PCR) Negative (NEGATIVE) 06/02/22 20:00 Tissue Pathology To follow 06/03/22 14:47 - Plan (1) Chest pain, rule out acute myocardial infarction Status: Acute Plan: NORMAL SALINE AT 80 ML/HR, PEPCID 20MG IV DAILY, PROTONIX 40MG IV BID, ROCEPHIN 1G IV DAILY, ZOFRAN 4MG PO Q6H PRN, THE MAGNESIUM PROTOCOL, AND HIS HOME MEDICATIONS WERE RESUMED. SERIAL CARDIAC ENZYMES AND EKGS (2) Nausea and vomiting Status: Acute Qualifiers: Vomiting type: unspecified Qualified Code(s): R11.2 - Nausea with vomiting, unspecified (3) Melena Status: Acute (4) Urinary tract infection Status: Acute Qualifiers: Urinary tract infection type: site unspecified Hematuria presence: without hematuria Qualified Code(s): N39.0 - Urinary tract infection, site not specified (5) End-stage renal disease on peritoneal dialysis Status: Chronic (6) Hypertension Status: Chronic Qualifiers: Hypertension type: primary hypertension Qualified Code(s): I10 - Essential (primary) hypertension (7) GERD (gastroesophageal reflux disease) Status: Chronic Qualifiers: Esophagitis presence: esophagitis presence not specified Qualified Code(s): K21.9 - Gastro-esophageal reflux disease without esophagitis
[2022-06-04] MEDS: SENSIPAR PO SCH (20:09)
[2022-06-05 05:20] LABS: BASOPHILS % (AUTO) 0.3 % (0.2-1.0); EOSINOPHILS # (AUTO) 0.3 x10^3/uL (0.0-0.2); EOSINOPHILS % (AUTO) 2.9 % (0.9-2.9); HEMATOCRIT 28.3 % (42.0-54.0); HEMOGLOBIN 9.8 g/dL (13.5-18.0); LYMPHOCYTES # (AUTO) 1.9 X10^3/uL (1.3-2.9); LYMPHOCYTES % (AUTO) 20.5 % (21.0-51.0); MEAN CORPUSCULAR HEMOGLOBIN 28.5 pg (27.0-34.0); MEAN CORPUSCULAR HGB CONC 34.4 g/dL (33.0-35.0); MEAN CORPUSCULAR VOLUME 82.7 fL (80.0-100.0); MEAN PLATELET VOLUME 7.9 fL (7.4-11.0); MONOCYTES # (AUTO) 0.8 x10^3/uL (0.3-0.8); MONOCYTES % (AUTO) 8.2 % (0.0-13.0); NEUTROPHILS # (AUTO) 6.4 x10^3/uL (2.2-4.8); NEUTROPHILS % (AUTO) 68.1 % (42.0-75.0); RED BLOOD COUNT 3.43 X10^6/uL (4.7-6.0); RED CELL DISTRIBUTION WIDTH 14.9 % (11.6-16.5); WHITE BLOOD COUNT 9.4 X10^3/uL (3.6-10.0)
[2022-06-05 05:21] LABS: ALANINE AMINOTRANSFERASE 30 Units/L (12-78); ALBUMIN 3.3 g/dL (3.4-5.0); ALKALINE PHOSPHATASE 147 Units/L (46-116); ASPARTATE AMINO TRANSFERASE 17 Units/L (15-37); BLOOD UREA NITROGEN 51 mg/dL (7-18); CALCIUM 7.1 mg/dL (8.5-10.1); CARBON DIOXIDE 22.7 mmol/L (21-32); CHLORIDE 94 mmol/L (98-107); COR CA(FOR HYPOALB) 7.7 mg/dL (8.5-10.1); CREATININE 16.57 mg/dL (0.70-1.30); SODIUM 132 mmol/L (136-145); eGFR NON BLACK RACES 3 (>60)
[2022-06-05] MEDS: NS 1,000 ML IV 1,000 ML IV SCH (05:28)
[2022-06-05] MEDS ORDERED: DIPRIVAN VIAL 20 ML ONE (07:35)
[2022-06-05] MEDS ORDERED: NS 1,000 ML IV 1,000 ML ONE (07:40)
--- NOTE | 2022-06-05 09:14 | DR.PROGNOT ---
Hospital Progress Notes - Progress Note for Day of: Progress Note Date: 06/05/22 - Chief Complaint Chief Complaint: EGD showed mild gastritis , no obstruction , no bleeding , no ulcers . colonoscopy today showed hemorrhoids .otherwise normal exam all the way to the cecum . Pt could be discharged with F/U in one week .. - Past Medical Family Social History Past Med/Fam/Surg Hx: No changes since H&P Allergies: Allergies penicillin G Allergy (Verified 06/04/22 07:59) - Review Of Systems ROS: No change since H&P - Vital Signs Vital Signs: Temperature 98.9 F Pulse Rate [Bilateral Apical] 100 Pulse Rate 90 Respiratory Rate 17 Blood Pressure [Right Arm] 132/82 Blood Pressure 114/67 O2 Sat by Pulse Oximetry 98 - Physical Exam Oriented: Normal Eyes: Normal Ear: Normal Nose: Normal Throat: Normal Respiratory: Generalized, Diminished Cardiovascular: Tachycardia : Normal GI:Auscultation: Normal GI:Palpation: Normal GI: Tenderness: Diffuse Skin: Normal Musculoskeletal: Normal Psychiatric: Normal Mood Description: Calm Affect: Normal Speech Pattern: Clear, Appropriate - Laboratory and Diagnostics Result Diagrams: 06/05/22 04:26 06/05/22 04:26 Labs: 06/03/22 16:20 Urine,Clean Catch Urine Culture - Final Laboratory WBC 9.4 X10^3/uL (3.6-10.0) 06/05/22 04:26 RBC 3.43 X10^6/uL (4.7-6.0) L 06/05/22 04:26 Hgb 9.8 g/dL (13.5-18.0) L 06/05/22 04:26 Hct 28.3 % (42.0-54.0) L 06/05/22 04:26 MCV 82.7 fL (80.0-100.0) 06/05/22 04:26 MCH 28.5 pg (27.0-34.0) 06/05/22 04:26 MCHC 34.4 g/dL (33.0-35.0) 06/05/22 04:26 RDW 14.9 % (11.6-16.5) 06/05/22 04:26 Plt Count 234 X10^3/uL (150.0-450.0) 06/05/22 04:26 MPV 7.9 fL (7.4-11.0) 06/05/22 04:26 Neut % (Auto) 68.1 % (42.0-75.0) 06/05/22 04:26 Lymph % (Auto) 20.5 % (21.0-51.0) L 06/05/22 04:26 [place] % (Auto) 8.2 % (0.0-13.0) 06/05/22 04:26 Eos % (Auto) 2.9 % (0.9-2.9) 06/05/22 04:26 Baso % (Auto) 0.3 % (0.2-1.0) 06/05/22 04:26 Neut # (Auto) 6.4 x10^3/uL (2.2-4.8) H 06/05/22 04:26 Lymph # (Auto) 1.9 X10^3/uL (1.3-2.9) 06/05/22 04:26 [place] # (Auto) 0.8 x10^3/uL (0.3-0.8) 06/05/22 04:26 Eos # (Auto) 0.3 x10^3/uL (0.0-0.2) H 06/05/22 04:26 Baso # (Auto) 0.0 X10^3/uL (0.0-0.1) 06/05/22 04:26 Absolute Nucleated RBC 0.0 /100WBC 06/05/22 04:26 PT 15.2 SECONDS (11.8-14.3) 06/02/22 11:40 INR Target Range - 06/02/22 11:40 INR 1.24 (0.8-1.3) 06/02/22 11:40 APTT 43.0 SECONDS (22.9-36.5) H 06/02/22 11:40 PTT Comment - 06/02/22 11:40 D-Dimer 0.97 ug/ml (0.0-0.57) H 06/02/22 11:40 Sodium 132 mmol/L (136-145) L 06/05/22 04:26 Corrected Sodium TNP 06/05/22 04:26 Potassium 3.1 mmol/L (3.5-5.1) L 06/05/22 04:26 Chloride 94 mmol/L (98-107) L 06/05/22 04:26 Carbon Dioxide 22.7 mmol/L (21-32) 06/05/22 04:26 BUN 51 mg/dL (7-18) H 06/05/22 04:26 Creatinine 16.57 mg/dL (0.70-1.30) H 06/05/22 04:26 Est GFR (MDRD) Af Amer 4 (>60) L 06/05/22 04:26 Est GFR (MDRD) Non-Af 3 (>60) L 06/05/22 04:26 Glucose 110 mg/dL (65-99) H 06/05/22 04:26 Calcium 7.1 mg/dL (8.5-10.1) L 06/05/22 04:26 Corrected Calcium 7.7 mg/dL (8.5-10.1) L 06/05/22 04:26 Magnesium 2.1 mg/dL (1.7-2.9) 06/04/22 04:38 Total Bilirubin 0.30 mg/dL (0.2-1.0) 06/05/22 04:26 AST 17 Units/L (15-37) 06/05/22 04:26 ALT 30 Units/L (12-78) 06/05/22 04:26 Alkaline Phosphatase 147 Units/L (46-116) H 06/05/22 04:26 Creatine Kinase 172 Units/L (39-308) 06/02/22 22:35 Troponin I High Sens 46.7 ng/L (4.0-60.0) 06/02/22 22:35 B-Natriuretic Peptide 64.8 pg/mL (0-79) 06/02/22 11:40 Total Protein 7.0 g/dL (6.4-8.2) 06/05/22 04:26 Albumin 3.3 g/dL (3.4-5.0) L 06/05/22 04:26 Globulin 3.7 g/dL (2.5-4.5) 06/05/22 04:26 Albumin/Globulin Ratio 0.9 Ratio (1.1-2.1) L 06/05/22 04:26 Amylase 15 Units/L (25-115) L 06/02/22 11:40 Lipase 296 Units/L (73-393) 06/02/22 11:40 Specimen Type Clean catch urine 06/02/22 20:20 Urine Color Yellow (YELLOW) 06/02/22 20:20 Urine Appearance Clear (CLEAR) 06/02/22 20:20 Urine pH 5.0 (5.0 - 8.0) 06/02/22 20:20 Ur Specific [place] 1.020 (1.000-1.030) 06/02/22 20:20 Urine Protein 2+ (NEGATIVE) 06/02/22 20:20 Urine Glucose (UA) 2+ (NEGATIVE) 06/02/22 20:20 Urine Ketones 1+ (NEGATIVE) 06/02/22 20:20 Urine Blood 2+ (NEGATIVE) 06/02/22 20:20 Urine Nitrite Negative (NEGATIVE) 06/02/22 20:20 Urine Bilirubin 2+ (NEGATIVE) 06/02/22 20:20 Urine Urobilinogen Normal (NORMAL) 06/02/22 20:20 Ur Leukocyte Esterase 1+ (NEGATIVE) 06/02/22 20:20 Urine RBC 5-10 /HPF (0-3) A 06/02/22 20:20 Urine WBC 5-10 /HPF (0-5) A 06/02/22 20:20 Ur Squamous Epith Cells Rare /HPF (NEGATIVE) 06/02/22 20:20 Urine Bacteria Trace /HPF (NEGATIVE) 06/02/22 20:20 Ur Culture Indicated? No/not indicated 06/02/22 20:20 Stool Description Brown soft 06/03/22 16:20 Stl Occult Blood (IFOB) Negative (NEGATIVE) 06/03/22 16:20 SARS-CoV-2 (PCR) Negative (NEGATIVE) 06/02/22 20:00 Tissue Pathology To follow 06/03/22 14:47 - Assessment and Plan 1: rectal bleeding , nausea , vomiting , abdominal pain . for colonoscopy in am . - Problem Patient Problems: Patient Problems Hypertension (Chronic) I10 Chest pain, rule out acute myocardial infarction (Acute) R07.9 Nausea and vomiting (Acute) R11.2 Melena (Acute) K92.1 End-stage renal disease on peritoneal dialysis (Chronic) N18.6, Z99.2 GERD (gastroesophageal reflux disease) (Chronic) K21.9 Urinary tract infection (Acute) N39.0
[2022-06-05 09:32] VITALS: BP 111/63
[2022-06-05] MEDS: PROTONIX INJ 40 MG VIAL IVP SCH (09:56)
[2022-06-05] MEDS: LASIX PO SCH (09:56)
[2022-06-05] MEDS: ROCEPHIN VIAL 1 GRAM 1 G in NS 100 ML IV 100 ML IV SCH (09:56)
[2022-06-05] MEDS: REQUIP PO SCH (09:57)
[2022-06-05] MEDS: ROCALTROL PO SCH (09:57)
[2022-06-05] MEDS: PEPCID 20 MG VIAL 20 MG in NS 50 ML IV 50 ML IV SCH (09:57)
== END 2022-06-05 12:15 | disposition home or self-care (01) ==
LOC: ICU
PROVIDERS: ADMIT Internal Medicine; ATTEND Internal Medicine
DX: E87.1 Hypo-osmolality and hyponatremia; K64.8 Other hemorrhoids; K29.00 Acute gastritis without bleeding; Z20.822 Contact with and (suspected) exposure to COVID-19; R19.7 Diarrhea, unspecified; K64.4 Residual hemorrhoidal skin tags; E87.6 Hypokalemia; K92.1 Melena; R10.13 Epigastric pain; R11.2 Nausea with vomiting, unspecified; R79.1 Abnormal coagulation profile; K52.89 Other specified noninfective gastroenteritis and colitis; R94.31 Abnormal electrocardiogram [ECG] [EKG]; R07.89 Other chest pain